=== PATIENT | male | born 1965 | race Caucasian/White ===

== ENCOUNTER 2024-05-09 10:17 | Outpatient (CLI) | payer OTHER, SELFPAY | END 2024-05-09 10:18 | disposition home or self-care (01) | PROVIDERS: PCP Physician Assistant Medical; Visit Provider Physician Assistant Medical | DX: Z00.00 Encounter for general adult medical examination without abnormal findings (principal); E78.5 Hyperlipidemia, unspecified; I10 Essential (primary) hypertension; M25.50 Pain in unspecified joint; Z12.5 Encounter for screening for malignant neoplasm of prostate | CPT/HCPCS: 86200; 86431; G0103 ==